=== PATIENT | female | born 2000 | race Hispanic/Latino ===

== ENCOUNTER 2023-04-03 02:19 | Observation (INO) | payer MEDICAID ==
[~2023-04-03] VITALS: Ht 157.5 cm; Wt 68.0 kg
[2023-04-03 02:20] VITALS: BP 124/85; PULSE 94; RESP 20
[2023-04-03 03:01] LABS: APPEARANCE,URINE CLEAR (CLEAR); BILIRUBIN,URINE NEGATIVE (NEGATIVE); COLOR,URINE YELLOW (YELLOW); GLUCOSE, URINE (UA) NEGATIVE (NEGATIVE); KETONES,URINE NEGATIVE (NEGATIVE); LEUKOCYTE ESTERASE ,URINE NEGATIVE Leu/uL (NEGATIVE); NITRATE,URINE NEGATIVE (NEGATIVE); OCCULT BLOOD,URINE SMALL (NEGATIVE); PROTEIN,URINE NEGATIVE (NEGATIVE); UROBILINOGEN,URINE 0.2 mg/dL (0.2-1.0)
[2023-04-03 03:02] LABS: ADD UA MICROSCOPIC YES
[2023-04-03 03:07] LABS: MUCUS,URINE RARE LPF (None Seen); RBC,URINE 0-1 /HPF (0-1); SQUAMOUS EPITHELIAL CELL,UR RARE /HPF (0-2); WBC,URINE 0-1 /HPF (0-1)
== END 2023-04-03 03:35 | disposition home or self-care (01) ==
LOC: EDH 02:19 → LDH 02:35
PROVIDERS: ADMIT Obstetrics & Gynecology; ATTEND Obstetrics & Gynecology
DX: O26.852 Spotting complicating pregnancy, second trimester (principal); O26.892 Other specified pregnancy related conditions, second trimester; R10.9 Unspecified abdominal pain; Z3A.20 20 weeks gestation of pregnancy
CPT/HCPCS: 81001; G0379; G0378

== ENCOUNTER 2023-08-13 16:54 | Inpatient (IN) | payer MEDICAID ==
[~2023-08-13] VITALS: Ht 157.5 cm; Wt 89.8 kg
[2023-08-13 18:24] LABS: ADD UA MICROSCOPIC YES; APPEARANCE,URINE HAZY (CLEAR); BILIRUBIN,URINE NEGATIVE (NEGATIVE); COLOR,URINE YELLOW (YELLOW); GLUCOSE, URINE (UA) NEGATIVE (NEGATIVE); KETONES,URINE NEGATIVE (NEGATIVE); LEUKOCYTE ESTERASE ,URINE 500 Leu/uL (NEGATIVE); NITRATE,URINE NEGATIVE (NEGATIVE); OCCULT BLOOD,URINE NEGATIVE (NEGATIVE); PH,URINE 6.5 (5.0-8.0); PROTEIN,URINE 30 mg/dL (NEGATIVE); UROBILINOGEN,URINE 0.2 mg/dL (0.2-1.0)
[2023-08-13 18:24] LABS: HEMATOCRIT 36.5 % (36-48); MEAN CORPUSCULAR HEMOGLOBIN 28.4 pg (27.0-33.0); MEAN CORPUSCULAR HGB CONC 32.9 g/dL (32.0-36.0); MEAN CORPUSCULAR VOLUME 86.5 fL (79-99); RED BLOOD CELL COUNT(AUTO) 4.22 MIL/uL (4.00-5.50); RED CELL DISTRIBUTION WIDTH 14.9 % (11.0-15.5); WHITE BLOOD COUNT (AUTO) 9.1 K/uL (4.8-10.8)
[2023-08-13 18:27] LABS: BACTERIA,URINE MOD /HPF (None Seen); MUCUS,URINE RARE LPF (None Seen); SQUAMOUS EPITHELIAL CELL,UR MANY /HPF (0-2); WBC,URINE 51-100 /HPF (0-1)
[2023-08-13] MEDS ORDERED: NALOXONE HCL 0.4 MG/1 ML ML IV PRN (18:30)
[2023-08-13] MEDS ORDERED: EPHEDRINE SULFATE 50 MG/ML AMPULE IVP PRN (18:30)
[2023-08-13] MEDS ORDERED: LACTATED RINGERS 500 ML 500 ML IV PRN (18:30)
[2023-08-13] MEDS: DINOPROSTONE 10 MG VAGINAL SUPP VG ONE (19:05)
[2023-08-13] MEDS: FAMOTIDINE 20MG TAB PO ONE (21:33)
[2023-08-14] MEDS: PROMETHAZINE HCL 25 MG/ML 1ML AMPULE IM PRN (00:54)
[2023-08-14] MEDS: MEPERIDINE-PF 50 MG/ML SYG IVP PRN (00:55)
[2023-08-14] MEDS: LACTATED RINGERS 1000ML 1,000 ML IV PRN (00:55)
[2023-08-14] MEDS: OXYTOCIN-LR 30 UNITS/500ML 500 ML IV SCH (06:03)
[2023-08-14] MEDS: MISOPROSTOL 25 MCG TAB VG PRN (18:57)
[2023-08-15] MEDS: FENTANYL CITRATE PF 50 MCG/1 ML 2ML VIAL ONE (10:17)
[2023-08-15] MEDS: ROPIVACAINE 0.2% 2MG/ML 100ML VIAL EP SCH (10:19)
[2023-08-15] MEDS: MISOPROSTOL 200 MCG TABLET ONE (13:34)
[2023-08-15] MEDS: TRANEXAMIC ACID 1000MG/10ML ONE (13:35)
[2023-08-15] MEDS: METHYLERGONOVINE MALEATE 0.2 MG/1 ML ML ONE (13:35)
[2023-08-15] MEDS: LIDOCAINE HCL 1% 20 ML VIAL ONE (13:46)
[2023-08-15] MEDS: LIDOCAINE HCL 1% 20 ML VIAL INJ SCH (15:28)
[2023-08-15] MEDS: METHYLERGONOVINE MALEATE 0.2 MG/1 ML ML IM SCH (15:46)
[2023-08-15] MEDS: MISOPROSTOL 25 MCG TAB PR ONE (15:48)
[2023-08-15] MEDS ORDERED: MEASLES/MUMPS/RUBELLA VACCINE, LIVE 0.5 ML/VIAL SQ PRN (16:00)
[2023-08-15] MEDS ORDERED: LANOLIN 30GM OINTMENT TP PRN (16:00)
[2023-08-15] MEDS ORDERED: DIPH,PERTUSS(ACELL),TET VAC/PF 0.5 ML VIAL IM PRN (16:00)
[2023-08-15 16:50] VITALS: TEMP 102.4
[2023-08-15] MEDS: ACETAMINOPHEN 325 MG TAB PO PRN (16:50)
[2023-08-15] MEDS ORDERED: AMPICILLIN 2GM+NS 100ML IV SCH (17:00)
[2023-08-15] MEDS: AMPICILLIN 2GM+NS 100ML 100 ML IV SCH (17:05)
[2023-08-15] MEDS: OXYTOCIN-LR 30 UNITS/500ML 500 ML IV SCH (17:07)
[2023-08-15 18:30] VITALS: BP 138/88; PULSE 70; RESP 20
[2023-08-15] MEDS: WITCH HAZEL 1 PAD TP PRN (19:01)
[2023-08-15] MEDS: BENZOCAINE/LANOLIN/ALOE VERA 60 ML AEROSOL TP PRN (19:03)
[2023-08-15] MEDS: ACETAMINOPHEN WITH CODEINE 1 TAB TAB PO PRN (19:51)
[2023-08-15] MEDS: DOCUSATE SODIUM 100 MG CAP PO SCH (19:51)
[2023-08-15 20:00] VITALS: BP 131/80; PULSE 75; RESP 20
[2023-08-15 23:59] VITALS: BP 126/80; PULSE 85; RESP 20
[2023-08-16 04:00] VITALS: BP 149/90; PULSE 93; RESP 20
[2023-08-16 07:30] VITALS: BP 113/85; PULSE 80; RESP 18
[2023-08-16 07:45] LABS: HEMATOCRIT 29.4 % (36-48); MEAN CORPUSCULAR HEMOGLOBIN 27.9 pg (27.0-33.0); MEAN CORPUSCULAR HGB CONC 33.7 g/dL (32.0-36.0); MEAN CORPUSCULAR VOLUME 82.8 fL (79-99); RED BLOOD CELL COUNT(AUTO) 3.55 MIL/uL (4.00-5.50); RED CELL DISTRIBUTION WIDTH 15.2 % (11.0-15.5); WHITE BLOOD COUNT (AUTO) 14.3 K/uL (4.8-10.8)
[2023-08-16] MEDS: IBUPROFEN 600 MG TABLET PO PRN (08:24)
[2023-08-16 11:30] VITALS: BP 107/63; PULSE 95; RESP 18
[2023-08-16] MEDS ORDERED: PREN1TAB80 PO (12:36)
[2023-08-16 16:00] VITALS: BP 127/80; PULSE 82; RESP 16
== END 2023-08-16 18:00 | disposition home or self-care (01) | DRG 560 ==
LOC: EDH 16:54 → LDH 16:55 → OBSVTOIN 16:55 → WSH 08-15 18:21
PROVIDERS: ADMIT Obstetrics & Gynecology; ATTEND Obstetrics & Gynecology
PROC: 10E0XZZ Delivery of Products of Conception, External Approach (ICD-10-PCS; principal; 2023-08-15)
PROC: 10907ZC Drainage of Amniotic Fluid, Therapeutic from Products of Conception, Via Natural or Artificial Opening (ICD-10-PCS; 2023-08-15)
PROC: 0KQM0ZZ Repair Perineum Muscle, Open Approach (ICD-10-PCS; 2023-08-15)
PROC: 3E0P7VZ Introduction of Hormone into Female Reproductive, Via Natural or Artificial Opening (ICD-10-PCS; 2023-08-15)
PROC: 3E033VJ Introduction of Other Hormone into Peripheral Vein, Percutaneous Approach (ICD-10-PCS; 2023-08-15)
PROC: 3E0R3BZ Introduction of Anesthetic Agent into Spinal Canal, Percutaneous Approach (ICD-10-PCS; 2023-08-15)
PROC: 00HU33Z Insertion of Infusion Device into Spinal Canal, Percutaneous Approach (ICD-10-PCS; 2023-08-15)
DX: O24.420 Gestational diabetes mellitus in childbirth, diet controlled (principal); Z37.0 Single live birth; O70.1 Second degree perineal laceration during delivery; O99.214 Obesity complicating childbirth; Z3A.39 39 weeks gestation of pregnancy
CPT/HCPCS: 36415; 76805; 81001; 82947; 85027; 86592; 86850; 86900; 86901; 87088; 87340; A4314; G0378; J0290; J2175; J2210; J2550; J2795; J3010; J3490